=== PATIENT | male | born 1980 | race American Indian/Alaskan Native ===

== ENCOUNTER 2016-08-29 22:48 | Emergency (ER) | payer SELFPAY ==
[2016-08-30 07:22] VITALS: BP 119/73
--- NOTE | 2016-08-30 07:31 | Emergency Department Report ---
ED Male HPI - General Stated complaint: ECZEMA FLAIR UP, KIDNEY PROBLEMS Time Seen by Provider: 08/30/16 07:06 Source: patient, family Mode of arrival: Ambulatory Limitations: No Limitations - History of Present Illness Initial comments: Patient here reports that he is having problems with his cold in his urine. He said when he has today is ago. He said this has been going on for years. He has not followed up with her primary care physician about that situation. He denies any pain. Denies any back pain, abdominal pain, testicular pain. Denies any penile burning, urinary burning or frequency. He is also complaining of eczema flareup to his forearm. Reports that is itchy. He said he is using topical steroid but is not helping. He said this has been also going on for 3 years. MD Complaint: other (urinary urgency and eczema to both forearms) -: year(s) Radiation: none Severity scale (0 -10): 0 Consistency: intermittent Improves with: none Worsens with: none other ( eczema and urinary urgency). denies: discharge, swelling, mass, rash, urinary retention, blood in urine, dysuria, fever, nausea/vomiting, incontinence - Related Data Sexually active: Yes Previous Rx's Medication Instructions Recorded Last Taken Type Ibuprofen [Motrin] 600 mg PO Q8H PRN #25 tablet 04/12/16 Unknown Rx Cetirizine HCl [ZyrTEC] 10 mg PO QDAY #14 capsule 08/30/16 Unknown Rx Triamcinolone 0.1% [Kenalog 0.1% 1 applic TP TID #1 tube 08/30/16 Unknown Rx CREAM] predniSONE [Deltasone] 50 mg PO QDAY #3 tab 08/30/16 Unknown Rx Allergies Allergy/AdvReac Type Severity Reaction Status Date / Time No Known Allergies Allergy Verified 08/30/16 01:13 ED Review of Systems ROS: Stated complaint: ECZEMA FLAIR UP, KIDNEY PROBLEMS Other details as noted in HPI Comment: All other systems reviewed and negative Constitutional: denies: chills, fever ENT: denies: ear pain, throat pain Respiratory: no symptoms reported Cardiovascular: denies: chest pain, palpitations, edema, syncope Gastrointestinal: denies: abdominal pain, nausea, vomiting Genitourinary: urgency. denies: dysuria, frequency, hematuria, discharge, testicular pain, testicular mass Musculoskeletal: denies: back pain, arthralgia Skin: denies: rash Neurological: denies: headache, weakness, numbness, paresthesias, confusion, abnormal gait, vertigo ED Past Medical Hx - Past Medical History Previous Medical History?: No - Surgical History Past Surgical History?: No - Family History Family history: no significant - Social History Smoking Status: Never Smoker Substance Use Type: None - Medications Home Medications: Home Medications Medication Instructions Recorded Confirmed Last Taken Type Ibuprofen [Motrin] 600 mg PO Q8H PRN #25 tablet 04/12/16 Unknown Rx Cetirizine HCl [ZyrTEC] 10 mg PO QDAY #14 capsule 08/30/16 Unknown Rx Triamcinolone 0.1% [Kenalog 0.1% 1 applic TP TID #1 tube 08/30/16 Unknown Rx CREAM] predniSONE [Deltasone] 50 mg PO QDAY #3 tab 08/30/16 Unknown Rx ED Physical Exam - General Limitations: No Limitations General appearance: alert, in no apparent distress - Head Head exam: Present: atraumatic, normocephalic, normal inspection - Eye Eye exam: Present: normal appearance, PERRL, EOMI. Absent: periorbital swelling , periorbital tenderness Pupils: Present: normal accommodation - ENT ENT exam: Present: normal exam, normal orophraynx, mucous membranes moist, TM's normal bilaterally, normal external ear exam - Neck Neck exam: Present: normal inspection, full ROM. Absent: tenderness, lymphadenopathy - Respiratory Respiratory exam: Present: normal lung sounds bilaterally. Absent: respiratory distress, chest wall tenderness - Cardiovascular Cardiovascular Exam: Present: regular rate, normal rhythm, normal heart sounds - GI/Abdominal GI/Abdominal exam: Present: soft, normal bowel sounds. Absent: distended, tenderness, guarding, rebound, rigid - Extremities Exam Extremities exam: Present: normal inspection, full ROM, normal capillary refill. Absent: tenderness, pedal edema, joint swelling, calf tenderness - Back Exam Back exam: Present: normal inspection, full ROM. Absent: tenderness, CVA tenderness (R), CVA tenderness (L), muscle spasm, paraspinal tenderness, vertebral tenderness, rash noted - Neurological Exam Neurological exam: Present: alert, oriented X3, normal gait, reflexes normal. Absent: motor sensory deficit - Psychiatric Psychiatric exam: Present: normal affect, normal mood - Skin Skin exam: Present: warm, dry, intact, rash, other (eczema rash to bilateral forearm. Dry scaly without any erythema. No induration.) - Expanded Skin Exam Expanded Description of rash: Absent: tenderness, erythematous, swelling, urticarial, discharge, fluctuant, indurated ED Course Vital Signs 08/30/16 08/30/16 01:08 07:21 Temperature 97.6 F Pulse Rate 66 69 Respiratory 16 18 Rate Blood Pressure 140/90 Blood Pressure 119/73 [Left] O2 Sat by Pulse 99 98 Oximetry - Reevaluation(s) Reevaluation #1: 08/30/16 08:40 Patient given Decadron 10 mg IM and emergency room. ED Medical Decision Making - Lab Data Lab Results 08/30/16 Range/Units Unknown Urine Color Yellow (Yellow) Urine Turbidity Clear (Clear) Urine pH 5.0 (5.0-7.0) Ur Specific [place] 1.025 (1.003-1.030) Urine Protein <15 mg/dl (Negative) mg/dL Urine Glucose (UA) Neg (Negative) mg/dL Urine Ketones Neg (Negative) mg/dL Urine Blood Neg (Negative) Urine Nitrite Neg (Negative) Urine Bilirubin Neg (Negative) Urine Urobilinogen < 2.0 (<2.0) mg/dL Ur Leukocyte Esterase Neg (Negative) Urine WBC (Auto) 4.0 (0.0-6.0) /HPF Urine RBC (Auto) 1.0 (0.0-6.0) /HPF Urine Mucus Few /HPF - Medical Decision Making ED course: The diagnosis of eczema flareup and urinary urgency. She has had these problems for years and has not follow-up with any outpatient physician. I discussed the patient diagnosis and treatment plan and he voiced understanding. He was given Decadron 10 mg IM and emergency room for eczema flareup. Discussed with patient that he needs to follow up outpatient Urologist and heel splitter and if he does not have the ability to do so then he needs to follow-up with [facility]. Patient discharged home with prescription for prednisone, triamcinolone and Zyrtec. Critical care attestation.: If time is entered above; I have spent that time in minutes in the direct care of this critically ill patient, excluding procedure time. ED Disposition Clinical Impression: Eczema of both upper extremities, Urinary urgency Disposition: DISCHARGED TO HOME OR SELFCARE Is pt being admited?: No Does the pt Need Aspirin: No Condition: Stable Instructions: Eczema (ED) Additional Instructions: Urinary urgency versus been going on for years, you have to follow up with a urologist or [facility]. Please take medication as prescribed for her eczema. Prescriptions: Cetirizine HCl [ZyrTEC] 10 mg PO QDAY #14 capsule predniSONE [Deltasone] 50 mg PO QDAY #3 tab Triamcinolone 0.1% [Kenalog 0.1% CREAM] 1 applic TP TID #1 tube Referrals: PRIMARY CAREMD [Primary Care Provider] - 3-5 Days KHLOE PITTS MD [Staff Physician] - 3-5 Days [facility] [Provider Group] - 3-5 Days [facility] [Outside] - 3-5 Days Forms: Work/School Release Form(ED)
[2016-08-30] MEDS ORDERED: DECADRON IM STA (07:36)
[2016-08-30 07:41] LABS: Bilirubin,Urine NEG (Negative); Blood,Urine NEG (Negative); Ketones,Urine NEG (Negative); Leukocyte Esterase,Urine NEG (Negative); Mucus,Urine FEW /HPF; Nitrite,Urine NEG (Negative); Protein,Urine <15 mg/dL mg/dL (Negative); Urobilinogen,Urine < 2.0 mg/dL (<2.0)
== END 2016-08-30 08:53 | disposition home or self-care (01) ==
LOC: ED 22:48
DX: L30.9 Dermatitis, unspecified (principal); R39.15 Urgency of urination
CPT/HCPCS: 81001; 87086; 96372; 99283; J1100

== ENCOUNTER 2017-12-01 16:47 | Emergency (ER) | payer SELFPAY ==
[2017-12-01 16:57] VITALS: BP 151/82
[2017-12-01] MEDS ORDERED: NACL 0.9% 1000 ML 1,000 ML IV ONE (18:19)
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
--- NOTE | 2017-12-01 21:14 | Emergency Department Report ---
Chief Complaint: Skin Rash Stated Complaint: SKIN RASH Time Seen by Provider: 12/01/17 18:07 - HPI History of Present Illness: 37-year-old -Japanese male comes in complaining of his eczema has flared up. Patient reports he ran out of his eczema medication and the like a refill. Patient denies any fever chills denies any open sores or wounds on his arms. - Exam Vital Signs: Vital Signs 12/01/17 16:52 Temperature 98.2 F Pulse Rate 74 Respiratory 16 Rate Blood Pressure 151/82 O2 Sat by Pulse 100 Oximetry Physical Exam: Patient is alert and oriented 3 Skin intact with hyperpigmented scaly skin. No open wounds appreciated. MSE screening note: Focused history and physical exam performed. Due to findings the following was ordered: Discussed patient this is consider nonmedical emergency. Patient was advised to follow-up with [facility] they open at 8 AM. Patient verbalizes understanding ED Disposition for MSE Condition: Stable Referrals: PRIMARY CARE [Primary Care Provider] - 3-5 Days
== END 2017-12-01 19:48 | disposition left against medical advice (07) ==
LOC: ED 16:47
DX: L30.9 Dermatitis, unspecified (principal)
CPT/HCPCS: 99282

== ENCOUNTER 2018-01-05 12:22 | Emergency (ER) | payer SELFPAY ==
[2018-01-05] MEDS ORDERED: DECADRON IM ONE (15:39)
[2018-01-05] MEDS ORDERED: MAGIC MOUTHWASH PO ONE (15:39)
--- NOTE | 2018-01-05 15:41 | Emergency Department Report ---
ED ENT HPI - General Chief complaint: Dental/Oral Stated complaint: SORE MOUTH Time Seen by Provider: 01/05/18 15:17 Source: patient Mode of arrival: Ambulatory Limitations: No Limitations - History of Present Illness Initial comments: This is a 37 y.o. male that presents with sore to right side of MD complaint: other (sore on right side of tongue and eczema flare) Onset/Timin -: days(s) Location: tongue, other (bilateral upper extremity) Severity: moderate Severity scale (0 -10): 10 Quality: sharp, constant Consistency: constant Improves with: none Worsens with: eating - Related Data Previous Rx's Medication Instructions Recorded Last Taken Type Ibuprofen [Motrin] 600 mg PO Q8H PRN #25 tablet 04/12/16 Unknown Rx Cetirizine HCl [ZyrTEC] 10 mg PO QDAY #14 capsule 08/30/16 Unknown Rx predniSONE [Deltasone] 50 mg PO QDAY #3 tab 08/30/16 Unknown Rx Chlorhexidine Mouthwash [Peridex] 15 ml MM BID #1 bottle 01/05/18 Unknown Rx Nystas/Diphen/Xyl Visc/Mylanta 15 ml MM Q4H PRN #100 ml 01/05/18 Unknown Rx [Magic Mouthwash] Triamcinolone 0.1% [Kenalog 0.1% 1 applic TP TID #1 tube 01/05/18 Unknown Rx CREAM] Allergies Allergy/AdvReac Type Severity Reaction Status Date / Time No Known Allergies Allergy Verified 08/30/16 01:13 ED Dental HPI - General Chief complaint: Dental/Oral Stated complaint: SORE MOUTH Time Seen by Provider: 01/05/18 15:17 Source: patient Mode of arrival: Ambulatory Limitations: No Limitations - Related Data Previous Rx's Medication Instructions Recorded Last Taken Type Ibuprofen [Motrin] 600 mg PO Q8H PRN #25 tablet 04/12/16 Unknown Rx Cetirizine HCl [ZyrTEC] 10 mg PO QDAY #14 capsule 08/30/16 Unknown Rx predniSONE [Deltasone] 50 mg PO QDAY #3 tab 08/30/16 Unknown Rx Chlorhexidine Mouthwash [Peridex] 15 ml MM BID #1 bottle 01/05/18 Unknown Rx Nystas/Diphen/Xyl Visc/Mylanta 15 ml MM Q4H PRN #100 ml 01/05/18 Unknown Rx [Magic Mouthwash] Triamcinolone 0.1% [Kenalog 0.1% 1 applic TP TID #1 tube 01/05/18 Unknown Rx CREAM] Allergies Allergy/AdvReac Type Severity Reaction Status Date / Time No Known Allergies Allergy Verified 08/30/16 01:13 ED Review of Systems ROS: Stated complaint: SORE MOUTH Other details as noted in HPI Constitutional: denies: chills, fever ENT: other (bump on right side of tongue). denies: ear pain, throat pain Respiratory: denies: cough, shortness of breath, wheezing Cardiovascular: denies: chest pain, palpitations Gastrointestinal: denies: abdominal pain, nausea, diarrhea Skin: rash (eczema rash BUE). denies: lesions Neurological: denies: headache, weakness, paresthesias Psychiatric: denies: anxiety, depression ED Past Medical Hx - Past Medical History Previous Medical History?: Yes Additional medical history: Eczema - Surgical History Past Surgical History?: No - Social History Smoking Status: Current Every Day Smoker Substance Use Type: Alcohol - Medications Home Medications: Home Medications Medication Instructions Recorded Confirmed Last Taken Type Ibuprofen [Motrin] 600 mg PO Q8H PRN #25 tablet 04/12/16 Unknown Rx Cetirizine HCl [ZyrTEC] 10 mg PO QDAY #14 capsule 08/30/16 Unknown Rx predniSONE [Deltasone] 50 mg PO QDAY #3 tab 08/30/16 Unknown Rx Chlorhexidine Mouthwash [Peridex] 15 ml MM BID #1 bottle 01/05/18 Unknown Rx Nystas/Diphen/Xyl Visc/Mylanta 15 ml MM Q4H PRN #100 ml 01/05/18 Unknown Rx [Magic Mouthwash] Triamcinolone 0.1% [Kenalog 0.1% 1 applic TP TID #1 tube 01/05/18 Unknown Rx CREAM] ED Physical Exam - General Limitations: No Limitations General appearance: alert, in no apparent distress - ENT ENT exam: Present: mucous membranes moist, other (4 mm white round ulcer, surrounding erythma, tender) - Respiratory Respiratory exam: Present: normal lung sounds bilaterally. Absent: respiratory distress - Cardiovascular Cardiovascular Exam: Present: regular rate, normal rhythm. Absent: systolic murmur, diastolic murmur, rubs, gallop - GI/Abdominal GI/Abdominal exam: Present: soft, normal bowel sounds - Neurological Exam Neurological exam: Present: alert, oriented X3 - Psychiatric Psychiatric exam: Present: normal affect, normal mood - Skin Skin exam: Present: warm, dry, intact, normal color, rash (Dry scaly eczema rash , without erythema, no induration.) ED Course Vital Signs 01/05/18 01/05/18 12:28 16:28 Temperature 98.3 F 98.9 F Pulse Rate 74 65 Respiratory 18 14 Rate Blood Pressure 135/73 Blood Pressure 133/82 [Right] O2 Sat by Pulse 100 99 Oximetry ED Medical Decision Making - Medical Decision Making Patient was examined by me. Vitals are normal and patient is in no acute distress. Physical findings susceptible of canker sore and eczema flare. Patient given magic mouthwash and dexamethasone in ER. Start magic mouthwash, peridex, and triamcinolone cream. Plan discussed with patient to discharge home and treat outpatient. Referral to dermatology and PCP for management. Patient discharged home in stable condition. Follow up with PCP in 2-3 days. Critical care attestation.: If time is entered above; I have spent that time in minutes in the direct care of this critically ill patient, excluding procedure time. ED Disposition Clinical Impression: Canker sore, Eczema of upper extremity, Tongue sore Disposition: DC-01 TO HOME OR SELFCARE Is pt being admited?: No Does the pt Need Aspirin: No Condition: Stable Instructions: Eczema (ED), Canker Sores (ED) Additional Instructions: Avoid oral trauma, recognized trigger foods, and acidic foods and drinks. Prescriptions: Chlorhexidine Mouthwash [Peridex] 15 ml MM BID #1 bottle Nystas/Diphen/Xyl Visc/Mylanta [Magic Mouthwash] 15 ml MM Q4H PRN #100 ml PRN Reason: Pain , Severe (7-10) Triamcinolone 0.1% [Kenalog 0.1% CREAM] 1 applic TP TID #1 tube Referrals: [facility] [Outside] - 3-5 Days [facility] [Outside] - 3-5 Days [facility] [Provider Group] - 3-5 Days Forms: Work/School Release Form(ED) Time of Disposition: 16:14 Print Language: YAKUT
[2018-01-05 16:29] VITALS: BP 133/82
== END 2018-01-05 16:28 | disposition home or self-care (01) ==
LOC: ED 12:22
DX: K12.0 Recurrent oral aphthae (principal); L30.9 Dermatitis, unspecified; F17.200 Nicotine dependence, unspecified, uncomplicated
CPT/HCPCS: 96372; 99282; J1100

== ENCOUNTER 2018-02-06 12:52 | Emergency (ER) | payer SELFPAY ==
[2018-02-06] MEDS ORDERED: SOLU-Medrol IM ONE (16:04)
--- NOTE | 2018-02-06 16:20 | Emergency Department Report ---
HPI - General Chief Complaint: Earache Time Seen by Provider: 02/06/18 15:58 - HPI HPI: 37-year-old male presents to the emergency department with 2 complaints. First, the patient complains of an exacerbation of his eczema, it is mostly on the upper extremities. He says he was seen here before for this and placed on a steroid cream but that has not been working. The area is scaly and itchy. Secondly, the patient complains of some slightly tender swelling to the right ear in the auricular region. He denies any trauma, insect bite. He says that he tried to poke it with a needle but only got a little bit of blood come out. He otherwise denies any other past medical history. He denies any fever. ED Past Medical Hx - Past Medical History Previous Medical History?: No Additional medical history: Eczema - Surgical History Past Surgical History?: No - Social History Smoking Status: Current Every Day Smoker Substance Use Type: None - Medications Home Medications: Home Medications Medication Instructions Recorded Confirmed Last Taken Type Ibuprofen [Motrin] 600 mg PO Q8H PRN #25 tablet 04/12/16 Unknown Rx Cetirizine HCl [ZyrTEC] 10 mg PO QDAY #14 capsule 08/30/16 Unknown Rx predniSONE [Deltasone] 50 mg PO QDAY #3 tab 08/30/16 Unknown Rx Chlorhexidine Mouthwash [Peridex] 15 ml MM BID #1 bottle 01/05/18 Unknown Rx Nystas/Diphen/Xyl Visc/Mylanta 15 ml MM Q4H PRN #100 ml 01/05/18 Unknown Rx [Magic Mouthwash] Triamcinolone 0.1% [Kenalog 0.1% 1 applic TP TID #1 tube 01/05/18 Unknown Rx CREAM] Sulfamethoxazole/Trimethoprim 1 each PO BID #14 tablet 02/06/18 Unknown Rx [Bactrim DS TAB] predniSONE [Deltasone] 20 mg PO BID #10 tab 02/06/18 Unknown Rx ED Review of Systems ROS: Stated complaint: EAR/ECZEMA Other details as noted in HPI Comment: All other systems reviewed and negative Constitutional: denies: chills, fever Eyes: denies: eye pain, eye discharge, vision change ENT: ear pain. denies: throat pain Respiratory: denies: cough, shortness of breath, wheezing Cardiovascular: denies: chest pain, palpitations Gastrointestinal: denies: abdominal pain, nausea, diarrhea Genitourinary: denies: urgency, dysuria Musculoskeletal: denies: back pain, joint swelling, arthralgia Skin: rash, pruritus Neurological: denies: headache, weakness, paresthesias Physical Exam - Physical Exam Vital Signs: Vital Signs 02/06/18 13:01 Temperature 98.5 F Pulse Rate 92 H Respiratory 16 Rate Blood Pressure 166/144 O2 Sat by Pulse 99 Oximetry Physical Exam: GENERAL: The patient is well-developed well-nourished. HENT: Normocephalic. Atraumatic. Patient has moist mucous membranes. Patient has swelling to the auricular portion of the right external ear that is fluctuant but there is no significant erythema. Normal appearing external ear canal and tympanic membrane. EYES: Extraocular motions are intact. Pupils equal reactive to light bilaterally. NECK: Supple. Trachea is midline. CHEST/LUNGS: Clear to auscultation. There is no respiratory distress noted. HEART/CARDIOVASCULAR: Regular. There is no tachycardia. There is no murmur. ABDOMEN: Abdomen is soft, nontender. Patient has normal bowel sounds. There is no abdominal distention. SKIN: Patient has some patchy scaly slightly raised rash to the right volar forearm and going into the antecubital fossa consistent with atopic dermatitis. NEURO: The patient is awake, alert, and oriented. The patient is cooperative. The patient has no focal neurologic deficits. The patient has normal speech and gait. MUSCULOSKELETAL: There is no tenderness or deformity. There is no evidence of acute injury. ED Course Vital Signs 02/06/18 13:01 Temperature 98.5 F Pulse Rate 92 H Respiratory 16 Rate Blood Pressure 166/144 O2 Sat by Pulse 99 Oximetry - I & D Right Ear Type of Procedure: Simple Site: right auricular external ear Blade Size: 11 I & D Procedure: betadine prep, sterile dressing applied Progress: A 1 cm incision was made with a 11 blade scalpel which released about 1 mL of serous fluid and some oozing of venous blood. Pressure was held with gauze until bleeding ceased. Patient tolerated the procedure well. No obvious complications. ED Medical Decision Making - Medical Decision Making Regarding the patient's rash, he was given a shot of steroids and will go home on a Medrol Dosepak. He has been given a referral for dermatology and primary care. Regarding the patient's ear, he has some slightly tender swelling to the external ear at the auricular region. There is no erythema so there is less suspicion of a perichondral infection. As per the procedure section, and incision and drainage was done that released some serous fluid and some mild venous bleeding and then pressure was held until bleeding ceased. At this point the swelling went down greatly and the patient had some relief. The I&D was done to make sure that there was no permanent cartilaginous damage. Since there is a small incisional opening, the patient will also be placed on antibiotics. The patient has been given a referral for an manager data center. However he's been instructed to return to the emergency Department with any worsening of his symptoms, development of fever, or with any acute distress. - Differential Diagnosis auricular cyst, perichondral infection, cellulitis, eczema, psoriasis Critical Care Time: No Critical care attestation.: If time is entered above; I have spent that time in minutes in the direct care of this critically ill patient, excluding procedure time. ED Disposition Clinical Impression: Posterior auricular pain of right ear, Auricular cyst Hypertension Qualifiers: Hypertension type: essential hypertension Qualified Code(s): I10 - Essential ( primary) hypertension Disposition: - TO HOME OR SELFCARE Is pt being admited?: No Condition: Stable Instructions: Hypertension (ED), Incision and Drainage (ED) Additional Instructions: I have given you a referral for a local lab engineer regarding your eczema. Please take the steroids as prescribed. I have given you a referral for a local [facility] data [facility]/ear nose throat physician regarding your ear swelling. Take the antibiotics as prescribed. Return to the emergency Department with any worsening of your symptoms or any acute distress. Try and quit smoking. Try and stay away from foods that are high in salt caffeinated products to help with her blood pressure. Keep a blood pressure log. Follow-up with your primary care physician. Prescriptions: predniSONE [Deltasone] 20 mg PO BID #10 tab Sulfamethoxazole/Trimethoprim [Bactrim DS TAB] 1 each PO BID #14 tablet Referrals: PRIMARY CARE, [Primary Care Provider] - 3-5 Days STEFANO QUEZADA MD [Staff Physician] - 2-3 Days DOUGLAS GUERRA MD [Staff Physician] - 2-3 Days Forms: Work/School Release Form(ED) Time of Disposition: 16:28
[2018-02-06] MEDS ORDERED: BACTRIM DS PO ONE (16:21)
[2018-02-06 16:28] VITALS: BP 130/86
== END 2018-02-06 16:33 | disposition home or self-care (01) ==
LOC: ED 12:52
DX: Q18.1 Preauricular sinus and cyst (principal); I10 Essential (primary) hypertension; F17.200 Nicotine dependence, unspecified, uncomplicated
CPT/HCPCS: 10060; 96372; 99282; J2930

== ENCOUNTER 2018-02-15 23:45 | Emergency (ER) | payer SELFPAY | END 2018-02-16 00:30 | disposition left against medical advice (07) | LOC: ED 23:45 | DX: H93.8X1 Other specified disorders of right ear (principal); Z53.21 Procedure and treatment not carried out due to patient leaving prior to being seen by health care provider ==

== ENCOUNTER 2018-02-16 03:20 | Emergency (ER) | payer SELFPAY ==
[2018-02-16] MEDS ORDERED: ZITHROMAX PO ONE (06:39)
[2018-02-16] MEDS ORDERED: XYLOCAINE 1% MPF 5 mL INFILTRATI ONE ×2 (06:39→07:11)
[2018-02-16] MEDS ORDERED: ROCEPHIN IM ONE (06:39)
--- NOTE | 2018-02-16 07:54 | Emergency Department Report ---
Abscess Boil HPI - HPI Chief Complaint: Earache Stated Complaint: RT EAR PAIN Time Seen by Provider: 02/16/18 06:37 HPI: Patient is a 37-year-old male nontoxic, well nourished in appearance, no acute signs of distress presents to the ED with c/o of intermittent swelling and tenderness to right ear in the auricular regin. Patient stated it was incised and drained last week and was put on antibiotics that he is currently taking and states symptoms has reoccurred. Patient denies any trauma to the area. Patient denies any pus, drainage, fever, chills, nausea, vomiting, chest pain or shortness of breath. Denies any past medical history. Home Medications: Previous Rx's Medication Instructions Recorded Last Taken Type Ibuprofen [Motrin] 600 mg PO Q8H PRN #25 tablet 04/12/16 Unknown Rx Cetirizine HCl [ZyrTEC] 10 mg PO QDAY #14 capsule 08/30/16 Unknown Rx predniSONE [Deltasone] 50 mg PO QDAY #3 tab 08/30/16 Unknown Rx Chlorhexidine Mouthwash [Peridex] 15 ml MM BID #1 bottle 01/05/18 Unknown Rx Nystas/Diphen/Xyl Visc/Mylanta 15 ml MM Q4H PRN #100 ml 01/05/18 Unknown Rx [Magic Mouthwash] Triamcinolone 0.1% [Kenalog 0.1% 1 applic TP TID #1 tube 01/05/18 Unknown Rx CREAM] Sulfamethoxazole/Trimethoprim 1 each PO BID #14 tablet 02/06/18 Unknown Rx [Bactrim DS TAB] predniSONE [Deltasone] 20 mg PO BID #10 tab 02/06/18 Unknown Rx Acetaminophen/Codeine [Tylenol 1 tab PO Q6H PRN #12 tab 02/16/18 Unknown Rx /Codeine # 3 tab] Allergies/Adverse Reactions: Allergies Allergy/AdvReac Type Severity Reaction Status Date / Time No Known Allergies Allergy Verified 08/30/16 01:13 ED Review of Systems ROS: Stated complaint: RT EAR PAIN Other details as noted in HPI Constitutional: denies: chills, fever Eyes: denies: eye pain, eye discharge, vision change ENT: denies: ear pain, throat pain Respiratory: denies: cough, shortness of breath, wheezing Cardiovascular: denies: chest pain, palpitations Endocrine: no symptoms reported Gastrointestinal: denies: abdominal pain, nausea, diarrhea Genitourinary: denies: urgency, dysuria Musculoskeletal: denies: back pain, joint swelling, arthralgia Skin: denies: rash, lesions Neurological: denies: headache, weakness, paresthesias Psychiatric: denies: anxiety, depression Hematological/Lymphatic: denies: easy bleeding, easy bruising ED Past Medical Hx - Past Medical History Previous Medical History?: No Additional medical history: Eczema - Surgical History Past Surgical History?: No - Social History Smoking Status: Current Every Day Smoker Substance Use Type: Marijuana - Medications Home Medications: Home Medications Medication Instructions Recorded Confirmed Last Taken Type Ibuprofen [Motrin] 600 mg PO Q8H PRN #25 tablet 04/12/16 Unknown Rx Cetirizine HCl [ZyrTEC] 10 mg PO QDAY #14 capsule 08/30/16 Unknown Rx predniSONE [Deltasone] 50 mg PO QDAY #3 tab 08/30/16 Unknown Rx Chlorhexidine Mouthwash [Peridex] 15 ml MM BID #1 bottle 01/05/18 Unknown Rx Nystas/Diphen/Xyl Visc/Mylanta 15 ml MM Q4H PRN #100 ml 01/05/18 Unknown Rx [Magic Mouthwash] Triamcinolone 0.1% [Kenalog 0.1% 1 applic TP TID #1 tube 01/05/18 Unknown Rx CREAM] Sulfamethoxazole/Trimethoprim 1 each PO BID #14 tablet 02/06/18 Unknown Rx [Bactrim DS TAB] predniSONE [Deltasone] 20 mg PO BID #10 tab 02/06/18 Unknown Rx Acetaminophen/Codeine [Tylenol 1 tab PO Q6H PRN #12 tab 02/16/18 Unknown Rx /Codeine # 3 tab] ED Abscess Boil Physical Exam - Exam General: Vital signs noted. No distress. Alert and acting appropriately. Size: 1 cm Exam: Yes Tenderness, Yes Fluctuance, Yes Normal Neurologic Exam, Yes Normal Circulation, No Surrounding Cellulites/Erythema, No Lymphangitis, No Crepitation , No Heart Murmur I & D Note - I & D Note I & D Note: Under sterile field, I used Betadine to cleanse the area. I then used 1% lidocaine plain with 25-gauge 5/8 needle to inject area for anesthetic purposes. Total volume injected 1 mL. I then used an 11 blade to make a 1 cm incision. About 1 ml of serous fluid drainage has been noted. I then held some pressure for oozing to stop. I then used sterile 0.9% normal saline flush to flush the wound with total volume of 40 mL used. A sterile 4 x 4 with tape has been applied as dressing. Bleeding is under control. Patient tolerated the procedure well with no signs of distress noted. ED Course Vital Signs 02/16/18 04:12 Temperature 98.5 F Pulse Rate 97 H Blood Pressure 125/75 O2 Sat by Pulse 97 Oximetry - Reevaluation(s) Reevaluation #1: 02/16/18 08:05 Patient is speaking in full sentences with no signs of distress noted. Critical care attestation.: If time is entered above; I have spent that time in minutes in the direct care of this critically ill patient, excluding procedure time. ED Medical Decision Making - Medical Decision Making This is a 37-year-old male that presents with abscess. Patient is stable and was examined by me. This is incision and drainage and has been performed and patient tolerated well. A sterile dressing has been applied. Patient was educated on proper wound care. Patient stated he is still taking Bactrim and so I advised patient to continue taking antibiotics as prescribed previously. Patient was instructed to refer to Follow-up with a primary care doctor in 3-5 days or if symptoms worsen and continue return to emergency room as soon as possible. At time of discharge, the patient does not seem toxic or ill in appearance. No acute signs of distress noted. Patient agrees to discharge treatment plan of care. No further questions noted by the patient. ED Disposition Clinical Impression: Encounter for incision and drainage procedure, Abscess Disposition: DC-01 TO HOME OR SELFCARE Is pt being admited?: No Does the pt Need Aspirin: No Condition: Stable Instructions: Abscess Incision and Drainage (ED), Abscess (ED) Additional Instructions: Follow-up with a primary care doctor in 3-5 days or if symptoms worsen and continue return to emergency room as soon as possible. Continue taking antibiotics as prescribed previously during your visit. Prescriptions: Acetaminophen/Codeine [Tylenol /Codeine # 3 tab] 1 tab PO Q6H PRN #12 tab PRN Reason: Pain , Severe (7-10) Referrals: PRIMARY CARE, [Primary Care Provider] - 3-5 Days POPPY CARLIN MD [Staff Physician] - 3-5 Days [facility] [Outside] - 3-5 Days [facility] [Outside] - 3-5 Days Forms: Work/School Release Form(ED)
[2018-02-16 08:22] VITALS: BP 124/72
== END 2018-02-16 08:21 | disposition home or self-care (01) ==
LOC: ED 03:20
DX: H60.01 Abscess of right external ear (principal); F17.200 Nicotine dependence, unspecified, uncomplicated
CPT/HCPCS: 10060; 99282; J0696

== ENCOUNTER 2018-02-20 12:54 | Emergency (ER) | payer SELFPAY ==
[2018-02-20 13:19] VITALS: BP 139/80
== END 2018-02-20 14:48 | disposition left against medical advice (07) ==
LOC: ED 12:54
DX: H92.09 Otalgia, unspecified ear (principal); Z53.21 Procedure and treatment not carried out due to patient leaving prior to being seen by health care provider

== ENCOUNTER 2018-10-24 10:57 | Emergency (ER) | payer SELFPAY ==
[2018-10-24 11:20] VITALS: BP 127/80
== END 2018-10-24 11:35 ==
LOC: ED 10:57
DX: R10.9 Unspecified abdominal pain (principal); R19.7 Diarrhea, unspecified; Z53.21 Procedure and treatment not carried out due to patient leaving prior to being seen by health care provider

== ENCOUNTER 2018-12-26 18:51 | Emergency (ER) | payer SELFPAY ==
[2018-12-26 20:18] VITALS: BP 126/79
--- NOTE | 2018-12-26 20:21 | Emergency Department Report ---
ED Rash HPI - HPI Chief Complaint: Skin Rash Stated Complaint: RASH Time Seen by Provider: 12/26/18 20:17 Duration: 2 Days Location: Neck, Back, Upper Extremities Suspected Cause: Unknown Rash Symptoms: Yes Itching, No Facial Swelling, No Tongue/Oral Swelling, No Breathing Difficulties, No Choking Sensation, No Wheezing/Dyspnea, No Peeling, No Blistering, No Fever, No Lightheaded, No Malaise, No Myalgias Severity: mild Other History: This is a 38-year-old male nontoxic well in appearance with no signs of distress presents to the ED with complaint of eczema flare-up. Stated is itching. Patient denies any swelling, pus, or drainage. Patient denies any other symptoms. Denies any fever, chills, headache, nausea, vomiting, chest pain or SOB. Denies any other complaints. ED Review of Systems ROS: Stated complaint: RASH Other details as noted in HPI Constitutional: denies: chills, fever Eyes: denies: eye pain, eye discharge, vision change ENT: denies: ear pain, throat pain Respiratory: denies: cough, shortness of breath, wheezing Cardiovascular: denies: chest pain, palpitations Endocrine: no symptoms reported Gastrointestinal: denies: abdominal pain, nausea, diarrhea Genitourinary: denies: urgency, dysuria Musculoskeletal: denies: back pain, joint swelling, arthralgia Skin: denies: rash, lesions Neurological: denies: headache, weakness, paresthesias Psychiatric: denies: anxiety, depression Hematological/Lymphatic: denies: easy bleeding, easy bruising ED Past Medical Hx - Past Medical History Previous Medical History?: Yes Additional medical history: Eczema, RECURRENT ABSCESS RIGHT OUTER EAR - Surgical History Past Surgical History?: No - Social History Smoking Status: Never Smoker - Medications Home Medications: Home Medications Medication Instructions Recorded Confirmed Last Taken Type Ibuprofen [Motrin] 600 mg PO Q8H PRN #25 tablet 04/12/16 Unknown Rx Cetirizine HCl [ZyrTEC] 10 mg PO QDAY #14 capsule 08/30/16 Unknown Rx predniSONE [Deltasone] 50 mg PO QDAY #3 tab 08/30/16 Unknown Rx Chlorhexidine Mouthwash [Peridex] 15 ml MM BID #1 bottle 01/05/18 Unknown Rx Nystas/Diphen/Xyl Visc/Mylanta 15 ml MM Q4H PRN #100 ml 01/05/18 Unknown Rx [Magic Mouthwash] Triamcinolone 0.1% [Kenalog 0.1% 1 applic TP TID #1 tube 01/05/18 Unknown Rx CREAM] Sulfamethoxazole/Trimethoprim 1 each PO BID #14 tablet 02/06/18 Unknown Rx [Bactrim DS TAB] predniSONE [Deltasone] 20 mg PO BID #10 tab 02/06/18 Unknown Rx Acetaminophen/Codeine [Tylenol 1 tab PO Q6H PRN #12 tab 02/16/18 Unknown Rx /Codeine # 3 tab] Clindamycin [Clindamycin CAP] 300 mg PO Q8H #21 cap 12/26/18 Unknown Rx Triamcinolone Acetonide [Kenalog] 100 gm TP DAILY #1 aerosol 12/26/18 Unknown Rx diphenhydrAMINE [Benadryl CAP] 25 mg PO Q6HR PRN #12 capsule 12/26/18 Unknown Rx Rash Exam - Exam General: Vital signs noted. No distress. Alert and acting appropriately. HEENT: No Periorbital Edema, No Conjuctival Injection, No Chemosis, No Perioral Edema, No Tongue Edema, No Uvular Edema, No Compromised Airway, No Drooling Lungs: Yes Good Air Exchange (Normal Breath Sounds), No Wheezes, No Ronchi, No Stridor, No Cough, No Labored Respirations, No Retractions, No Use of Accessory Muscles, No Other Abnormal Lung Sounds Heart: Yes Regular, No Murmur Skin: Yes Other (crusting and itching noted), No Urticarial Rash, No Maculo papular Rash, No Morbilliform rash, No Bulla(e), No Excoriations, No Weeping, No Tenderness, No Erythema, No Edema, No Encrustations Other: Positive: Abdomen Normal, Neurologic Normal, Musculoskeletal Normal ED Course Vital Signs 12/26/18 20:16 Temperature 98.4 F Pulse Rate 96 H Respiratory 18 Rate Blood Pressure 126/79 O2 Sat by Pulse 95 Oximetry - Reevaluation(s) Reevaluation #1: 12/26/18 20:18 Patient is speaking in full sentences with no signs of distress noted. ED Medical Decision Making - Medical Decision Making Patient was instructed to Follow-up with a primary care doctor in 3-5 days or if symptoms worsen and continue return to emergency room as soon as possible. At time of discharge, the patient does not seem toxic or ill in appearance. No acute signs of distress noted. Patient agrees to discharge treatment plan of care. No further questions noted by the patient. Critical care attestation.: If time is entered above; I have spent that time in minutes in the direct care of this critically ill patient, excluding procedure time. ED Disposition Clinical Impression: Eczema Qualifiers: Eczema type: unspecified Qualified Code(s): L30.9 - Dermatitis, unspecified Disposition: DC-01 TO HOME OR SELFCARE Is pt being admited?: No Does the pt Need Aspirin: No Condition: Stable Instructions: Eczema (ED) Additional Instructions: Follow-up with a primary care doctor in 3-5 days or if symptoms worsen and continue return to emergency room as soon as possible. Prescriptions: diphenhydrAMINE [Benadryl CAP] 25 mg PO Q6HR PRN #12 capsule PRN Reason: Itching Clindamycin [Clindamycin CAP] 300 mg PO Q8H #21 cap Triamcinolone Acetonide [Kenalog] 100 gm TP DAILY #1 aerosol Referrals: PRIMARY CAREMD [Referring] - 3-5 Days POPPY CARLIN MD [Staff Physician] - 3-5 Days [facility] [Outside] - 3-5 Days [facility] [Outside] - 3-5 Days Forms: Work/School Release Form(ED)
== END 2018-12-26 20:40 | disposition home or self-care (01) ==
LOC: ED 18:51
DX: L30.9 Dermatitis, unspecified (principal); Z79.899 Other long term (current) drug therapy

== ENCOUNTER 2018-12-29 21:16 | Emergency (ER) | payer SELFPAY ==
--- NOTE | 2018-12-29 21:38 | Emergency Department Report ---
Blank Doc - Documentation Documentation: This is a 38-year-old male that presents with eczema in the back flareup and d ental pain. Patient was given medications last week but stated has not taken it. Denies any other symptoms or complaints. When asked about the stroke he said he has back pain and dental pain. Exam: no stroke symptoms. normal hand strength. neuro exam within normal liimts. no facial drooping. This initial assessment/diagnostic orders/clinical plan/treatment(s) is/are subject to change based on patient's health status, clinical progression and re- assessment by fellow clinical providers in the ED. Further treatment and workup at subsequent clinical providers discretion. Patient/guardians urged not to elope from the ED as their condition may be serious if not clinically assessed and managed. Initial orders include: 1- Patient sent to [facility] for further evaluation and treatment
[2018-12-29 21:40] VITALS: BP 142/78
== END 2018-12-30 00:30 | disposition left against medical advice (07) ==
LOC: ED 21:16
DX: R07.89 Other chest pain (principal); Z53.21 Procedure and treatment not carried out due to patient leaving prior to being seen by health care provider

== ENCOUNTER 2018-12-31 02:36 | Emergency (ER) | payer SELFPAY ==
[2018-12-31 02:42] VITALS: BP 145/98
[2018-12-31] MEDS ORDERED: DECADRON IM ONE (07:52)
[2018-12-31] MEDS ORDERED: DECADRON ONE (07:56)
--- NOTE | 2018-12-31 07:58 | Emergency Department Report ---
ED Rash HPI - HPI Chief Complaint: Urogenital-Male Stated Complaint: BUBBLES IN HIS URINE Time Seen by Provider: 12/31/18 03:40 Location: Back, Upper Extremities Suspected Cause: Unknown (eczema history and having a flare up. request a steroid shot) Rash Symptoms: Yes Itching, Yes Wheezing/Dyspnea, No Facial Swelling, No Tongue/Oral Swelling, No Lightheaded, No Malaise, No Myalgias Severity: moderate Other History: Pt reports he is not concerned about urine bubbles ED Review of Systems ROS: Stated complaint: BUBBLES IN HIS URINE Other details as noted in HPI Comment: All other systems reviewed and negative ED Past Medical Hx - Past Medical History Previous Medical History?: Yes Additional medical history: Eczema, RECURRENT ABSCESS RIGHT OUTER EAR - Surgical History Past Surgical History?: No - Social History Smoking Status: Current Every Day Smoker Substance Use Type: Alcohol - Medications Home Medications: Home Medications Medication Instructions Recorded Confirmed Last Taken Type Ibuprofen [Motrin] 600 mg PO Q8H PRN #25 tablet 04/12/16 Unknown Rx Cetirizine HCl [ZyrTEC] 10 mg PO QDAY #14 capsule 08/30/16 Unknown Rx predniSONE [Deltasone] 50 mg PO QDAY #3 tab 08/30/16 Unknown Rx Chlorhexidine Mouthwash [Peridex] 15 ml MM BID #1 bottle 01/05/18 Unknown Rx Nystas/Diphen/Xyl Visc/Mylanta 15 ml MM Q4H PRN #100 ml 01/05/18 Unknown Rx [Magic Mouthwash] Triamcinolone 0.1% [Kenalog 0.1% 1 applic TP TID #1 tube 01/05/18 Unknown Rx CREAM] Sulfamethoxazole/Trimethoprim 1 each PO BID #14 tablet 02/06/18 Unknown Rx [Bactrim DS TAB] predniSONE [Deltasone] 20 mg PO BID #10 tab 02/06/18 Unknown Rx Acetaminophen/Codeine [Tylenol 1 tab PO Q6H PRN #12 tab 02/16/18 Unknown Rx /Codeine # 3 tab] Clindamycin [Clindamycin CAP] 300 mg PO Q8H #21 cap 12/26/18 Unknown Rx Triamcinolone Acetonide [Kenalog] 100 gm TP DAILY #1 aerosol 12/26/18 Unknown Rx diphenhydrAMINE [Benadryl CAP] 25 mg PO Q6HR PRN #12 capsule 12/26/18 Unknown Rx Betamethasone/Propylene Glyc 0.5 gm TP BID #50 oint...g. 12/31/18 Unknown Rx [Diprolene 0.05% Ointment] hydrOXYzine HCL [Atarax] 25 mg PO Q6HR PRN #20 tablet 12/31/18 Unknown Rx predniSONE [Deltasone] 50 mg PO QDAY #5 tab 12/31/18 Unknown Rx Rash Exam - Exam General: Vital signs noted. No distress. Alert and acting appropriately. HEENT: No Periorbital Edema, No Conjuctival Injection, No Chemosis, No Perioral Edema, No Tongue Edema, No Uvular Edema, No Compromised Airway, No Drooling Lungs: Yes Good Air Exchange (Normal Breath Sounds), No Wheezes, No Ronchi, No Stridor, No Cough, No Labored Respirations, No Retractions, No Use of Accessory Muscles, No Other Abnormal Lung Sounds Heart: Yes Regular, No Murmur Skin: Yes Excoriations, Yes Other (eczema rash to upperbody ) Other: Positive: Abdomen Normal, Neurologic Normal, Musculoskeletal Normal ED Course Vital Signs 12/31/18 02:38 Temperature 98.3 F Pulse Rate 107 H Respiratory 16 Rate Blood Pressure 145/98 O2 Sat by Pulse 97 Oximetry Critical care attestation.: If time is entered above; I have spent that time in minutes in the direct care of this critically ill patient, excluding procedure time. ED Disposition Clinical Impression: Eczema Disposition: DC-01 TO HOME OR SELFCARE Is pt being admited?: No Does the pt Need Aspirin: No Condition: Stable Prescriptions: hydrOXYzine HCL [Atarax] 25 mg PO Q6HR PRN #20 tablet PRN Reason: Itching predniSONE [Deltasone] 50 mg PO QDAY #5 tab Betamethasone/Propylene Glyc [Diprolene 0.05% Ointment] 0.5 gm TP BID #50 oint...g. Referrals: YOSEPH SCHWARTZ MD [Primary Care Provider] - 3-5 Days
== END 2018-12-31 08:03 | disposition home or self-care (01) ==
LOC: ED 03:45
DX: L30.9 Dermatitis, unspecified (principal); F17.200 Nicotine dependence, unspecified, uncomplicated
CPT/HCPCS: 96372; 99281; J1100

== ENCOUNTER 2019-06-27 16:22 | Emergency (ER) | payer SELFPAY ==
[2019-06-27 16:28] VITALS: BP 148/94
--- NOTE | 2019-06-27 18:40 | Emergency Department Report ---
Chief Complaint: High BP Stated Complaint: BP HIGH Time Seen by Provider: 06/27/19 18:35 - HPI History of Present Illness: 39 y/o male comes in stating that his blood pressure is high. Patient denies any GOMEZ, Chest pain or SOB. - Exam Vital Signs: Vital Signs 06/27/19 16:26 Temperature 98.8 F Pulse Rate 77 Respiratory 16 Rate Blood Pressure 148/94 O2 Sat by Pulse 99 Oximetry Physical Exam: AxO times 3 NAD Ambulatory with difficulties. MSE screening note: Focused history and physical exam performed. Due to findings the following was ordered: 39 y/o male comes in stating that his blood pressure is high. Patient denies any GOMEZ, Chest pain or SOB. ED Disposition for MSE Condition: Stable
== END 2019-06-27 19:00 | disposition left against medical advice (07) ==
LOC: ED 16:22
DX: I10 Essential (primary) hypertension (principal); Z53.21 Procedure and treatment not carried out due to patient leaving prior to being seen by health care provider

== ENCOUNTER 2019-11-02 13:34 | Emergency (ER) | payer SELFPAY ==
[2019-11-02 13:41] VITALS: BP 146/88
--- NOTE | 2019-11-02 13:55 | Emergency Department Report ---
ED Rash HPI - HPI Chief Complaint: Skin Rash Stated Complaint: ECZEMA OUTBREAK Duration: 2 Days Rash Symptoms: Yes Itching, Yes Peeling, No Facial Swelling, No Tongue/Oral Swelling, No Breathing Difficulties, No Choking Sensation, No Wheezing/Dyspnea, No Blistering, No Fever, No Lightheaded, No Malaise, No Myalgias Severity: moderate Other History: This is a 39-year-old male with a history of eczema. Who presents the ED today complaining of eczema flareup. He denies any fever, chills, nausea vomiting or any other symptoms ED Review of Systems ROS: Stated complaint: ECZEMA OUTBREAK Other details as noted in HPI ED Past Medical Hx - Past Medical History Previous Medical History?: No Additional medical history: Eczema, RECURRENT ABSCESS RIGHT OUTER EAR - Social History Smoking Status: Current Every Day Smoker Substance Use Type: Alcohol - Medications Home Medications: Home Medications Medication Instructions Recorded Confirmed Last Taken Type Ibuprofen [Motrin] 600 mg PO Q8H PRN #25 tablet 04/12/16 Unknown Rx predniSONE [Deltasone] 50 mg PO QDAY #3 tab 08/30/16 Unknown Rx Chlorhexidine Mouthwash [Peridex] 15 ml MM BID #1 bottle 01/05/18 Unknown Rx Nystas/Diphen/Xyl Visc/Mylanta 15 ml MM Q4H PRN #100 ml 01/05/18 Unknown Rx [Magic Mouthwash] Sulfamethoxazole/Trimethoprim 1 each PO BID #14 tablet 02/06/18 Unknown Rx [Bactrim DS TAB] predniSONE [Deltasone] 20 mg PO BID #10 tab 02/06/18 Unknown Rx Acetaminophen/Codeine [Tylenol 1 tab PO Q6H PRN #12 tab 02/16/18 Unknown Rx /Codeine # 3 tab] Clindamycin [Clindamycin CAP] 300 mg PO Q8H #21 cap 12/26/18 Unknown Rx Triamcinolone Acetonide [Kenalog] 100 gm TP DAILY #1 aerosol 12/26/18 Unknown Rx diphenhydrAMINE [Benadryl CAP] 25 mg PO Q6HR PRN #12 capsule 12/26/18 Unknown Rx Betamethasone/Propylene Glyc 0.5 gm TP BID #50 oint...g. 12/31/18 Unknown Rx [Diprolene 0.05% Ointment] hydrOXYzine HCL [Atarax] 25 mg PO Q6HR PRN #20 tablet 12/31/18 Unknown Rx Cetirizine HCl [ZyrTEC 10mg cap] 10 mg PO QDAY #14 capsule 11/02/19 Unknown Rx Triamcinolone 0.1% [Kenalog 0.1% 1 applic TP TID #4 tube 11/02/19 Unknown Rx CREAM] predniSONE [Deltasone] 50 mg PO QDAY #5 tab 11/02/19 Unknown Rx Rash Exam - Exam General: Vital signs noted. No distress. Alert and acting appropriately. HEENT: No Periorbital Edema, No Conjuctival Injection, No Chemosis, No Perioral Edema, No Tongue Edema, No Uvular Edema, No Compromised Airway, No Drooling Lungs: Yes Good Air Exchange (Normal Breath Sounds), No Wheezes, No Ronchi, No Stridor, No Cough, No Labored Respirations, No Retractions, No Use of Accessory Muscles, No Other Abnormal Lung Sounds Heart: Yes Regular, No Murmur Skin: Yes Maculopapular Rash, No Urticarial Rash, No Morbilliform rash, No Bulla(e), No Excoriations, No Weeping, No Tenderness, No Erythema, No Edema, No Encrustations Other: Positive: Abdomen Normal, Neurologic Normal, Musculoskeletal Normal ED Course Vital Signs 11/02/19 13:37 Temperature 98.2 F Pulse Rate 78 Respiratory 18 Rate Blood Pressure 146/88 O2 Sat by Pulse 98 Oximetry ED Medical Decision Making - Medical Decision Making 39-year-old male presents for eczematous dermatitis Patient was instructed to Follow-up with a primary care doctor in 3-5 days Discussed with the patient if symptoms worsen and continue return to emergency room as soon as possible. At time of discharge, the patient does not seem toxic or ill in appearance. No acute signs of distress noted. Patient agrees to discharge treatment plan of care. No further questions noted by the patient. Critical care attestation.: If time is entered above; I have spent that time in minutes in the direct care of this critically ill patient, excluding procedure time. ED Disposition Clinical Impression: Eczematous dermatitis Disposition: DC-01 TO HOME OR SELFCARE Is pt being admited?: No Does the pt Need Aspirin: No Condition: Stable Instructions: Eczema (ED) Additional Instructions: Make sure to follow up with the primary care physician as discussed. Take all your medications as you've been prescribed. If you have any worsening symptoms or develop new symptoms please return to ED immediately. Prescriptions: predniSONE [Deltasone] 50 mg PO QDAY #5 tab Triamcinolone 0.1% [Kenalog 0.1% CREAM] 1 applic TP TID #4 tube Cetirizine HCl [ZyrTEC 10mg cap] 10 mg PO QDAY #14 capsule Referrals: [facility] [Outside] - 3-5 Days [facility] [Outside] - 3-5 Days Forms: Work/School Release Form(ED) Time of Disposition: 13:59
== END 2019-11-02 14:10 | disposition home or self-care (01) ==
LOC: ED 13:34
DX: L30.9 Dermatitis, unspecified (principal); F17.200 Nicotine dependence, unspecified, uncomplicated; Z79.899 Other long term (current) drug therapy
CPT/HCPCS: 99282

== ENCOUNTER 2019-11-14 08:11 | Emergency (ER) | payer SELFPAY ==
[2019-11-14 08:21] VITALS: BP 144/89
--- NOTE | 2019-11-14 10:32 | Emergency Department Report ---
Chief Complaint: Skin Rash Stated Complaint: ECZEMA Time Seen by Provider: 11/14/19 10:26 - HPI History of Present Illness: a/c chronic eczema no pcp otc creams not working no systemic symptoms or fevers - ROS Review of Systems: skin rash only - Exam Vital Signs: Vital Signs 11/14/19 08:15 Temperature 98.4 F Pulse Rate 82 Respiratory 16 Rate Blood Pressure 144/89 O2 Sat by Pulse 100 Oximetry Physical Exam: generalized chronic appearing dry rash no open areas no fever no cp no sob MSE screening note: Focused history and physical exam performed. Due to findings the following was ordered: Patient discussed with doctor:: VANDANA LOPEZ ED Disposition for MSE Clinical Impression: Eczematous dermatitis Disposition: MED SCREENING EXAM-LEFT Is pt being admited?: No Does the pt Need Aspirin: No Condition: Stable Additional Instructions: OVER THE COUNTER HYDROCORT CREAM AND BENADRYL PILLS FOR ITCHING Referrals: ALANNA FERNANDEZ MD [Staff Physician] - 3-5 Days CONRAD BURTON MD [Referring] - 3-5 Days Forms: Work/School Release Form(ED) Time of Disposition: 10:32
== END 2019-11-14 10:30 | disposition left against medical advice (07) ==
LOC: ED 08:11
DX: L30.9 Dermatitis, unspecified (principal); Z53.21 Procedure and treatment not carried out due to patient leaving prior to being seen by health care provider